=== PATIENT | female | born 1955 | race African-American/Black ===

== ENCOUNTER 2020-02-11 17:14 | Emergency (ER) | payer OTHER ==
[~2020-02-11] VITALS: Ht 149.9 cm; Wt 64.0 kg
--- NOTE | 2020-02-11 17:48 | Emergency Department Note ---
History of Present Illnes History of Present Illness Chief Complaint: Genitourinary History of Present Illness This is a 64 year old female with urinary retention which requires self cath eterization presents to the ED for one day h/o dysuria . Historian: Patient, Family Member Arrival Mode: Car Onset (how long ago): day(s) (2) Location: suprapubic Radiation: Reports abdomen (suprapubic ) Severity: mild Onset quality: gradual Duration (how long): day(s) (1) Timing of current episode: constant Progression: unchanged Chronicity: new Context: Denies recent illness, Denies recent surgery, Denies recent immobilization, Denies recent travel, Denies trauma/injury, Denies new medications, Denies hx of DVT/PE, Denies non-compliance w/ medications, Denies other Relieving factors: none Exacerbating factors: none Associated symptoms: Denies denies other symptoms, Denies confusion, Denies chest pain, Denies cough, Denies diaphoresis, Denies fever/chills, Denies headaches, Denies loss of appetite, Denies malaise, Denies nausea/vomiting, Denies rash, Denies seizure, Denies shortness of breath, Denies syncope, Denies weakness, Denies other (MODE LOPEZ DO) Past Medical/Family History Physician Review I have reviewed the patient's past medical and family history. Any updates have been documented here. (MODE LOPEZ DO) Past Medical History Recent Fever: No Clinical Suspicion of Infectio: Yes New/Unexplained Change in Ment: No Other Medical History: urinary retention Past Surgical History: None (MODE LOPEZ DO) Social History Smoking Cessation: Never Smoker Alcohol Use: None Any Illegal Drug Use: No (MODE LOPEZ DO) Review of Systems Review of Systems Constitutional: Reports no symptoms EENTM: Reports no symptoms Cardiovascular: Reports no symptoms Respiratory: Reports no symptoms Gastrointestinal: Reports no symptoms Genitourinary: Reports dysuria Musculoskeletal: Reports no symptoms Integumentary: Reports no symptoms Neurological: Reports no symptoms Psychological: Reports no symptoms Endocrine: Reports no symptoms Hematological/Lymphatic: Reports no symptoms (MODE LOPEZ DO) Physical Exam Related Data Allergies: Coded Allergies: No Known Allergies (Unverified , 02/11/20) Triage Vital Signs Vital Signs Date Time Temp Pulse Resp B/P (MAP) Pulse Ox O2 Delivery O2 Flow Rate FiO2 02/11/20 17:31 97.6 75 16 138/87 97 Room Air (MODE LOPEZ DO) Physical Exam CONSTITUTIONAL HENT EYES NECK PULMONARY CARDIOVASCULAR GASTROINTESTINAL GENITOURINARY SKIN MUSCULOSKELETAL NEUROLOGICAL PSYCHOLOGICAL (LOPEZMODE ) Results Laboratory Lab results reviewed: Yes (PERRY HIGGINS MD) Imaging Imaging results reviewed: Yes Impressions [place] [address] Patient Name: HUAN EPPERSON MR #: [id number] : 1955 Age/Sex: 64/F Req #: [id number] Adm Physician: Ordered by: MODE LOPEZ DO Report #: [id number] Location: ER Room/Bed: Procedure: [id number] CT/CT ABDOMEN/PELVIS WO Exam Date: 02/11/20 Exam Time: 1800 REPORT STATUS: Signed EXAMINATION: CT of the abdomen and pelvis without contrast. TECHNIQUE: Spiral CT images of the abdomen and pelvis were performed from the lung bases to the lesser trochanters. No intravenous contrast was given per physician's request. Coronal and sagittal reformatted images were obtained. COMPARISON: None. CLINICAL HISTORY:Suprapubic pain, UTI, patient does self-catheterization DISCUSSION: ABSENCE OF INTRAVENOUS CONTRAST DECREASES SENSITIVITY FOR DETECTION OF FOCAL LESIONS AND VASCULAR PATHOLOGY. ABDOMEN/PELVIS: LOWER THORAX: Mild bilateral lower lobe dependent atelectasis. Lung bases are otherwise clear. Mild atherosclerotic calcification of the coronary arteries. HEPATOBILIARY: No focal hepatic lesions. No intra or extrahepatic biliary ductal dilation. GALLBLADDER: No radio-opaque stones or sludge. No wall thickening. SPLEEN: No splenomegaly. PANCREAS: No focal masses or ductal dilatation. ADRENALS: No adrenal nodules. KIDNEYS/URETERS: No renal or ureteral calculi, hydronephrosis or obstruction. No contour abnormalities or perinephric stranding. PELVIC ORGANS/BLADDER: Bladder is markedly distended, with bladder dome above the level of the umbilicus. No wall thickening. No focal lesions. Uterus is unremarkable. No adnexal masses. PERITONEUM/RETROPERITONEUM: No free air or fluid. LYMPH NODES: No intra-abdominal,retroperitoneal, pelvic or inguinal lymphadenopathy. VESSELS: Atherosclerotic calcification of the distal abdominal aorta and proximal iliac vessels. GI TRACT: No bowel dilation or evidence of obstruction. No pericolonic inflammatory changes. Appendix is identified and normal in caliber. 4-5 mm intraluminal radiopaque density in the descending colon likely represents undigested pill material (series 3, image 110). Small amount of retained stool in the rectum. BONES AND SOFT TISSUES: No aggressive lytic or suspicious focal sclerotic lesions. Generalized osteopenia. Degenerated discs in the lower thoracic and lumbosacral spine, worse at L5-S1. Mild canal stenosis at L4-L5. Facet hypertrophy L4-L5 and L5-S1. Small fat-containing of ventricle hernia. IMPRESSION: 1. Markedly distended bladder, with bladder dome above the level of the umbilicus. No focal lesions or wall thickening in this noncontrast exam. Findings may represent bladder outlet obstruction. 2. No renal, ureteral or bladder calculi. Signed by: Dr. Ra Monique M.D. on 02/11/2020 6:41 PM Dictated By: RA MONIQUE MD 40 Transcribed By: SAL on 02/11/201840 COPY TO: MODE LOPEZ DO~ (MODE LOPEZ DO) Imaging results reviewed: Yes (PERRY HIGGINS MD) Assessment & Plan Medical Decision Making MDM Diff Dx : UTI, urinary retention, urogenital CA (MODE LOPEZ DO) MDM PT WITH URINARY RETENTION I SPOKE WITH DR LOUIE EDWARDS INDWELLING NGUYEN, HAVE PT FOLLOW UP IN OFFICE NEXT WEEK (PERRY HIGGINS MD) Assessment & Plan Final Impression: (1) Urinary retention (PERRY HIGGINS MD) Depart Disposition: HOME, SELF-CARE Last Vital Signs Date Time Temp Pulse Resp B/P (MAP) Pulse Ox O2 Delivery O2 Flow Rate FiO2 02/11/20 17:31 97.6 75 16 138/87 97 Room Air (LOPEZ,MODE PALAFO[place] DO Feb 11, 2020 17:48 PERRY HIGGINS MD Feb 11, 2020 20:02
--- OUTSIDE RECORDS SUMMARY | 2020-02-11 18:23 | XMS REPORT | Continuity of Care Document ---
Author Author [facility] Organization [facility] Address [address] [place] [address] Phone Unavailable Care Team Providers Care Building Trades Instructor Name Role Phone Unavailable Unavailable Problems Condition Name Condition Details Condition Category Status Onset Date Resolution Date Last Treatment Date Treating Clinician Comments Source Xerostomia Xerostomia Problem Active 2018-10-31 00:00:00 [facility] Diabetic neuropathy Diabetic Neuropathy Problem Active 2018-02-14 00:00 :00 [facility] Seasonal allergy Seasonal Allergy Problem Active 2018-01-26 00:00:00 [facility] Cataract Cataract Problem Active 2017-09-15 00:00:00 [facility] Body mass index 30+ - obesity Body Mass Index 30+ - Obesity Problem Active 2017-07-03 00:00:00 [facility] Diabetes mellitus Diabetes Mellitus Problem Active 2017-06-28 00:00:00 [facility] Hyperlipidemia Hyperlipidemia Problem Active 2017-06-28 00:00:00 [facility] Carpal tunnel syndrome Carpal Tunnel Syndrome Problem Active 2017-06-28 00:00:00 [facility] Hypertensive disorder Hypertensive Disorder Problem Active 201 12-28-29 00:00:00 [facility] [place] Coronary arteriosclerosis Coronary Arteriosclerosis Problem Ac tive 2017-06-28 00:00:00 [facility] Gastroesophageal reflux disease without esophagitis Ga stroesophageal Reflux Disease without Esophagitis Problem Active 2017-06-28 00:00:00 [facility] Bladder muscle dysfunction - overactive Bladder Muscle Dysfu nction - Overactive Problem Active 2017-06-28 00:00:00 [facility] Osteoarthritis Osteoarthritis Problem Active 2017-06-28 00:00:00 [facility] Lumbosacral radiculopathy Lumbosacral Radiculopathy Problem Ac tive 2017-06-28 00:00:00 [facility] Allergies, Adverse Reactions, Alerts This patient has no known allergies or adverse reactions. Social History Smoking Status Start Date Stop Date Source Never Smoker [facility] Medications Ordered Medication Name Filled Medication Name Start Date Stop Da te Current Medication? Ordering Clinician Indication Dosage Frequency Signature (SIG) Comments Components Source amoxicillin 875 mg-potassium clavulanate 125 mg tablet Take 1 tablet every 12 hours by oral route for 10 days. amoxicillin 875 mg-potassium clavulanate 125 mg tablet Take 1 tablet every 12 hours by oral route for 10 days. No 1 Q12H amoxicillin 875 mg-potassium clavulanate 125 mg tablet Take 1 tablet every 12 hours by oral route for 10 days. [facility] atorvastatin 40 mg tablet Take 1 tablet every day by o ral route. atorvastatin 40 mg tablet Take 1 tablet every day by oral route. No 1 Q1D atorvastatin 40 mg tablet Take 1 tablet every day by oral route. [facility] azelastine 137 mcg (0.1 %) nasal spray a erosol Jameson 1 spray twice a day by intranasal route as needed. azelastine 137 mcg (0.1 %) nasal spray a erosol Jameson 1 spray twice a day by intranasal route as needed. No 1spray(s) BID azelastine 137 mcg (0.1 %) nasal spray aerosol Jameson 1 spray twice a day by intranasal route as needed. [facility] Bromfed DM 2 mg-30 mg-10 mg/5 mL oral sy rup Take 10 mL every 6 hours by oral route as needed. prn cough and congestion Bromfed DM 2 mg-30 mg-10 mg/5 mL oral syrup Take 10 mL every 6 hours by oral route as needed. prn cough and congestion No 10mL Q6H Bromfed DM 2 mg- 30 mg-10 mg/5 mL oral syrup Take 10 mL every 6 hours by oral route as needed. prn cough and congestion [facility] clopidogrel 75 mg tablet Take 1 tablet every day by or al route. clopidogrel 75 mg tablet Take 1 tablet every day by oral route. No 1 Q1D clopidogrel 75 mg tablet Take 1 tablet every day by oral route. [facility] doxazosin 1 mg tablet TAKE 1 TABLET(S) EVERY DAY BY OR AL ROUTE doxazosin 1 mg tablet TAKE 1 TABLET(S) EVERY DAY BY ORAL ROUTE No doxazosin 1 mg tablet TAKE 1 TABLET(S) EVERY DAY BY ORAL ROUTE [facility] famotidine 40 mg tablet Take 1 tablet every day by ora l route as needed. famotidine 40 mg tablet Take 1 tablet every day by oral route as needed. No 1 Q1D famotidine 40 mg tablet Take 1 tablet every day by oral route as needed. [facility] fluticasone propionate 50 mcg/actuation nasal spray,suspension Jameson 2 sprays every day by intranasal route as needed. fluticasone propionate 50 mcg/actuation nasal spray,suspension Jameson 2 sprays every day by intranasal route as needed. No 2spray(s) Q1D fluticason e propionate 50 mcg/actuation nasal spray,suspension Jameson 2 sprays every day by intranasal route as needed. [facility] isosorbide dinitrate 10 mg tablet Take 1 tablet every day by oral route. isosorbide dinitrate 10 mg tablet Take 1 tablet every day by oral route. No 1 Q1D isosorbide dinit rate 10 mg tablet Take 1 tablet every day by oral route. [facility] losartan 25 mg tablet Take 1 tablet every day by oral route. losartan 25 mg tablet Take 1 tablet every day by oral route. No 1 Q1D losartan 25 mg tablet Take 1 tablet every day by oral route. [facility] metformin 500 mg tablet TAKE 1 TABLET BY MOUTH TWICE A DAY metformin 500 mg tablet TAKE 1 TABLET BY MOUTH TWICE A DAY No metformin 500 mg tablet TAKE 1 TABLET BY MOUTH TWICE A DAY [facility] Novolog Mix 70-30 FlexPen U-100 Insulin 100 unit/mL subcutaneous pen INJECT 30 UNIT(S) TWICE A DAY BY SUBCUTANEOUS ROUTE. Novolog Mix 70-30 FlexPen U-100 Insulin 100 unit/mL subcutaneous pen INJECT 30 UNIT(S) TWICE A DAY BY SUBCUTANEOUS ROUTE. No Sri log Mix 70-30 FlexPen U-100 Insulin 100 unit/mL subcutaneous pen INJECT 30 UNIT(S) TWICE A DAY BY SUBCUTANEOUS ROUTE. [facility] pilocarpine 5 mg tablet Take 1 tablet 3 times a day by oral route. pilocarpine 5 mg tablet Take 1 tablet 3 times a day by oral route. No 1 TID pilocarpine 5 mg tablet Take 1 tablet 3 times a day by oral route. [facility] Steglatro 15 mg tablet Take 1 tablet every day by oral route. Steglatro 15 mg tablet Take 1 tablet every day by oral route. No 1 Q1D Steglatro 15 mg tablet Take 1 tablet every day by oral route. [facility] Victoza 3-Roman 0.6 mg/0.1 mL (18 mg/3 mL) subcutaneous pen injector INJECT 1.8 MG EVERY DAY BY SUBCUTANEOUSLY Victoza 3-Roman 0.6 mg/0.1 mL (18 mg/3 mL) subcutaneous pen injector INJECT 1.8 MG EVERY DAY BY SUBCUTANEOUSLY No Victoza 3-Roman 0.6 mg/0.1 mL (18 mg/3 mL) subcutaneous pen injector INJECT 1.8 MG EVERY DAY BY SUBCUTANEOUSLY [facility] Immunizations Ordered Immunization Name Filled Immunization Name Date Status Comments Source influenza, injectable, quadrivalent influenza, injectable, q uadrivalent 2018-06-13 10:47:00 Completed [facility] pneumococcal polysaccharide PPV23 pneumococcal polysaccharid e PPV23 2018-06-13 10:47:00 Completed [facility] ice Tdap Tdap 2017-08-01 11:06:00 Completed [facility] influenza, injectable, quadrivalent, preservative free influenza, injectable, quadrivalent, preservative free 2017-08-01 11:05:50 Completed [facility] Vital Signs Vital Name Observation Time Observation Value Comments Source BP Diastolic 2019-02-13 00:00:00 72 mm[Hg] [facility] Height 2019-02-13 00:00:00 58.5 [in_i] [facility] BMI (Body Mass Index) 2019-02-13 00:00:00 28.4 kg/m2 [facility] BP Systolic 2019-02-13 00:00:00 118 mm[Hg] [facility] Body Weight 2019-02-13 00:00:00 138 [lb_av] [facility] BP Diastolic 2018-10-31 00:00:00 76 mm[Hg] [facility] Height 2018-10-31 00:00:00 58.5 [in_i] [facility] BMI (Body Mass Index) 2018-10-31 00:00:00 29.6 kg/m2 [facility] BP Systolic 2018-10-31 00:00:00 122 mm[Hg] [facility] Body Weight 2018-10-31 00:00:00 144 [lb_av] [facility] BP Diastolic 2018-06-21 00:00:00 68 mm[Hg] [facility] Height 2018-06-21 00:00:00 58.5 [in_i] [facility] BMI (Body Mass Index) 2018-06-21 00:00:00 29.4 kg/m2 [facility] BP Systolic 2018-06-21 00:00:00 120 mm[Hg] [facility] Body Weight 2018-06-21 00:00:00 143.3 [lb_av] [facility] Procedures Procedure Date / Time Performed Performing Clinician Sourc e MAMMO, screening, digital, bilateral 2019-02-13 00:00:00 [facility] XR, lumbar spine 2018-10-31 00:00:[address] [facility] X-RAY OF FOOT 3+ VIEW 2018-06-21 00:00:00 [facility] Cardiac Catheterization [facility] Carpal Tunnel Surgery [facility] Knee Surgery [facility] ractice Plan of Care Planned Activity Planned Date Details Comments Source Diagnostic Test Pending 2019-02-13 00:00:00 CBC w/ auto diff [code = CBC w/ auto diff] [facility] Diagnostic Test Pending 2019-02-13 00:00:00 CMP, serum or pl asma [code = CMP, serum or plasma] [facility] Diagnostic Test Pending 2019-02-13 00:00:00 TSH, serum or pl asma [code = TSH, serum or plasma] [facility] Diagnostic Test Pending 2019-02-13 00:00:00 lipid panel, ser um [code = lipid panel, serum] [facility] Diagnostic Test Pending 2019-02-13 00:00:00 colon cancer scr eening, stool [code = colon cancer screening, stool] [facility] Diagnostic Test Pending 2019-02-13 00:00:00 HbA1c (hemoglobi n A1c), blood [code = HbA1c (hemoglobin A1c), blood] [facility] Diagnostic Test Pending 2019-02-13 00:00:00 microalbumin/cre atinine, ratio, urine [code = microalbumin/creatinine, ratio, urine] [facility] Future Appointment 2020-02-14 00:00:00 Dutch Barrera, [address]; [address], [place] [address] [facility] Instructions [facility] Encounters Start Date/Time End Date/Time Encounter Type Admission Type [facility] Care Department Encounter ID Source 2020-02-10 02:31:00 2020-02-10 02:31:00 Emergency E BL BL [id number] [facility] 2019-02-13 00:00:00 2019-02-13 00:00:00 Dutch Barrera MD: [address], [address] [address], Ph. [facility] [id number] [facility] 2018-10-31 00:00:00 2018-10-31 00:00:00 Dutch Barrera MD: [address], [address], [place] [address], Ph. [facility] [id number] [facility] 2018-06-21 00:00:00 2018-06-21 00:00:00 Dutch Barrera MD: [address], [address], [place] [address], Ph. [facility] [id number] [facility] 2018-06-13 00:00:00 2018-06-13 00:00:00 Dutch Barrera MD: [address], [address], [place] [address], Ph. [facility] [id number] [facility] Results This patient has no known results.
--- NOTE | 2020-02-11 18:44 | Diagnostic Imaging Report ---
EXAMINATION: CT of the abdomen and pelvis without contrast. TECHNIQUE: Spiral CT images of the abdomen and pelvis were performed from the lung bases to the lesser trochanters. No intravenous contrast was given per physician's request. Coronal and sagittal reformatted images were obtained. COMPARISON: None. CLINICAL HISTORY:Suprapubic pain, UTI, patient does self-catheterization DISCUSSION: ABSENCE OF INTRAVENOUS CONTRAST DECREASES SENSITIVITY FOR DETECTION OF FOCAL LESIONS AND VASCULAR PATHOLOGY. ABDOMEN/PELVIS: LOWER THORAX: Mild bilateral lower lobe dependent atelectasis. Lung bases are otherwise clear. Mild atherosclerotic calcification of the coronary arteries. HEPATOBILIARY: No focal hepatic lesions. No intra or extrahepatic biliary ductal dilation. GALLBLADDER: No radio-opaque stones or sludge. No wall thickening. SPLEEN: No splenomegaly. PANCREAS: No focal masses or ductal dilatation. ADRENALS: No adrenal nodules. KIDNEYS/URETERS: No renal or ureteral calculi, hydronephrosis or obstruction. No contour abnormalities or perinephric stranding. PELVIC ORGANS/BLADDER: Bladder is markedly distended, with bladder dome above the level of the umbilicus. No wall thickening. No focal lesions. Uterus is unremarkable. No adnexal masses. PERITONEUM/RETROPERITONEUM: No free air or fluid. LYMPH NODES: No intra-abdominal,retroperitoneal, pelvic or inguinal lymphadenopathy. VESSELS: Atherosclerotic calcification of the distal abdominal aorta and proximal iliac vessels. GI TRACT: No bowel dilation or evidence of obstruction. No pericolonic inflammatory changes. Appendix is identified and normal in caliber. 4-5 mm intraluminal radiopaque density in the descending colon likely represents undigested pill material (series 3, image 110). Small amount of retained stool in the rectum. BONES AND SOFT TISSUES: No aggressive lytic or suspicious focal sclerotic lesions. Generalized osteopenia. Degenerated discs in the lower thoracic and lumbosacral spine, worse at L5-S1. Mild canal stenosis at L4-L5. Facet hypertrophy L4-L5 and L5-S1. Small fat-containing of ventricle hernia. IMPRESSION: 1. Markedly distended bladder, with bladder dome above the level of the umbilicus. No focal lesions or wall thickening in this noncontrast exam. Findings may represent bladder outlet obstruction. 2. No renal, ureteral or bladder calculi. Signed by: Dr. Bruce Monique M.D. on 02/11/2020 6:41 PM
[2020-02-11 19:41] LABS: BILIRUBIN,URINE NEGATIVE (NEGATIVE); CLARITY,URINE HAZY (CLEAR); COLOR,URINE AMBER (YELLOW); KETONES,URINE 1+ (NEGATIVE); LEUKOCYTE ESTERASE ,URINE NEGATIVE (NEGATIVE); NITRITE,URINE NEGATIVE (NEGATIVE); PROTEIN,URINE DIPSTICK 1+ (NEGATIVE); URINE UROBILINOGEN 0.2 mg/dL (0.2 - 1)
[2020-02-11 19:51] LABS: BACTERIA,URINE RARE /HPF; RBC,URINE >50 /HPF (0-5)
== END 2020-02-11 20:40 | disposition home or self-care (01) ==
LOC: ER 18:20
DX: R33.9 Retention of urine, unspecified (principal); R30.0 Dysuria
CPT/HCPCS: 51700; 74176; 81001; 99284